=== PATIENT | male | born 1990 | race American Indian/Alaskan Native ===

== ENCOUNTER 2021-08-05 07:26 | Emergency (ER) | payer MEDICAID ==
[2021-08-05 07:42] VITALS: BP 116/67
[2021-08-05] MEDS ORDERED: ACETAMINOPHEN 325 MG TAB PO ONE (10:11)
--- NOTE | 2021-08-05 10:12 | Emergency Department Report ---
ED Lower Extremity HPI - General Chief Complaint: Extremity Injury, Lower Stated Complaint: FALL Time Seen by Provider: 08/05/21 09:42 Source: patient Mode of arrival: Ambulatory Limitations: No Limitations - History of Present Illness Initial Comments: 31 year old male presents to ED with complaints of left knee pain s/p fall injury at work. Patient states that this occurred yesterday around 3 PM at work. Patient states that he works for [employer], and he was running towards a light, when there was a plastic chain on the floor. He did not see the chain at the time when he tripped over the chain and fell. He states that he landed on his left side somehow injured his left knee. Patient states that he continued to work but started to have increasing pain in the left knee as he continued. He states that he left work, went home, elevate his leg and apply ice and has been taking Advil. She states that has been having increased pain with flexion e xtension and with weightbearing of the knee. He denies any prior issues with his knee in the past. MD Complaint: knee injury -: days(s) (1) - Related Data Previous Rx's Medication Instructions Recorded Last Taken Type Ketorolac [Toradol] 10 mg PO Q6H PRN #20 tablet 08/05/21 Unknown Rx Allergies Allergy/AdvReac Type Severity Reaction Status Date / Time No Known Allergies Allergy Unverified 08/05/21 07:39 ED Review of Systems ROS: Stated complaint: FALL Other details as noted in HPI Comment: All other systems reviewed and negative Respiratory: denies: cough, shortness of breath, SOB with exertion, SOB at rest, wheezing Cardiovascular: denies: chest pain, palpitations Musculoskeletal: joint swelling, arthralgia Skin: denies: rash, lesions, change in color, change in hair/nails, pruritus Neurological: denies: headache, weakness, paresthesias, confusion, vertigo Psychiatric: denies: anxiety, depression, auditory hallucinations, visual hallucinations, homicidal thoughts, suicidal thoughts Hematological/Lymphatic: denies: easy bleeding, swollen glands ED Past Medical Hx - Past Medical History Previous Medical History?: No - Surgical History Additional Surgical History: HAND - Medications Home Medications: Home Medications Medication Instructions Recorded Confirmed Last Taken Type Ketorolac [Toradol] 10 mg PO Q6H PRN #20 tablet 08/05/21 Unknown Rx ED Physical Exam - General Limitations: No Limitations General appearance: alert, in no apparent distress - Head Head exam: Present: atraumatic, normocephalic, normal inspection - Respiratory Respiratory exam: Present: normal lung sounds bilaterally. Absent: respiratory distress, wheezes, rales, rhonchi - Cardiovascular Cardiovascular Exam: Present: regular rate, normal rhythm, normal heart sounds - Expanded Lower Extremity Exam Left Knee exam: Present: normal inspection, full ROM (but painful ), tenderness (mild diffusely ). Absent: swelling, abrasion, laceration, ecchymosis, deformity, crepidus ED Course Vital Signs 08/05/21 07:38 Temperature 97.9 F Pulse Rate 77 Respiratory 20 Rate Blood Pressure 116/67 O2 Sat by Pulse 99 Oximetry ED Lower Extremity MDM - Radiology Data Radiology results: report reviewed Patient: LORENA OCHOA MR#: [id number] [birth year] : 1990 Acct:[id number] Age/Sex: 31 / M ADM Date: 08/05/21 Loc: ED Attending Dr: Ordering Physician: ROBE CARRASQUILLO Date of Service: 08/05/21 Procedure(s): XR knee 3V LT Accession Number(s): [id number] cc: ROBE CARRASQUILLO Fluoro Time In Minutes: Left knee 3 views INDICATION: Fall FINDINGS: Mild degenerative change of the knee with patellofemoral joint space narrowing. No joint effusion is seen. No acute fracture dislocation. Signer Name: Loy Alfaro MD Signed: 08/05/2021 10:38 AM Workstation Name: [id number] Transcribed By: CW Dictated By: ROSELYN ALFARO MD Electronically Authenticated By: ROSELYN ALFARO MD Signed Date/Time: 08/05/21 1038 DD/ 1034 TD/TT: Critical care attestation.: If time is entered above; I have spent that time in minutes in the direct care of this critically ill patient, excluding procedure time. ED Disposition Clinical Impression: Knee sprain, Left knee DJD Disposition: HOME / SELF CARE / HOMELESS Is pt being admited?: No Does the pt Need Aspirin: No Condition: Stable Instructions: Arthritis, [id number], Knee Sprain, Adult, [id number] Additional Instructions: Recommend that you take the Toradol as prescribed to help with pain. Use Marcus wrap as discussed. You can use the crutches to help with ambulation. Continue to apply ice and elevate your leg as often as possible. If you continue to have pain in the knee after about 1 week I do recommend follow-up with health science specialist on your discharge instructions. Return to the ER if your symptoms worsens in any way. Prescriptions: Ketorolac [Toradol] 10 mg PO Q6H PRN #20 tablet PRN Reason: Pain Referrals: THAI GARZA MD [Staff Physician] - 7-10 days Forms: Work/School Release Form(ED) Time of Disposition: 11:12
--- NOTE | 2021-08-05 10:43 | XRay Report ---
Left knee 3 views INDICATION: Fall FINDINGS: Mild degenerative change of the knee with patellofemoral joint space narrowing. No joint ef fusion is seen. No acute fracture dislocation. Signer Name: Loy Alfaro MD Signed: 08/05/2021 10:38 AM Workstation Name: [id number]
== END 2021-08-05 11:33 | disposition home or self-care (01) ==
LOC: ED 07:26
DX: S83.8X2A Sprain of other specified parts of left knee, initial encounter (principal); M17.12 Unilateral primary osteoarthritis, left knee; W18.39XA Other fall on same level, initial encounter; Y93.89 Activity, other specified; Y92.89 Other specified places as the place of occurrence of the external cause; Y99.8 Other external cause status
CPT/HCPCS: 99283

== ENCOUNTER 2021-10-12 12:47 | Emergency (ER) | payer MEDICAID ==
[2021-10-12 14:41] VITALS: BP 122/66
--- NOTE | 2021-10-12 14:55 | Emergency Department Report ---
Chief Complaint: Extremity Injury, Lower Stated Complaint: MRI Time Seen by Provider: 10/12/21 14:56 - HPI History of Present Illness: 31 yo with a/c knee pain in ER requesting MRI ongoing knee pain ambulatory and nad - ROS Review of Systems: knee pain worse with movement requesting MRI - Exam Vital Signs: Vital Signs 10/12/21 14:38 Temperature 98.4 F Pulse Rate 58 L Respiratory 14 Rate Blood Pressure 122/66 O2 Sat by Pulse 100 Oximetry Physical Exam: no effusion ambulatory neurovasc intact MSE screening note: Focused history and physical exam performed. Due to findings the following was ordered: ED Disposition for MSE Clinical Impression: Knee pain Disposition: 01 HOME / SELF CARE / HOMELESS Is pt being admited?: No Does the pt Need Aspirin: No Condition: Stable Referrals: THAI GARZA MD [Staff Physician] - 3-5 Days Time of Disposition: 14:54
== END 2021-10-12 19:06 | disposition home or self-care (01) ==
LOC: ED 12:47
DX: M25.569 Pain in unspecified knee (principal)
CPT/HCPCS: 99282